=== PATIENT | male | born 1960 | race Caucasian/White ===

== ENCOUNTER 2016-05-26 09:31 | Day surgery (SDC) | payer OTHER ==
[~2016-05-26] VITALS: Ht 180.3 cm; Wt 88.5 kg
[~2016-05-26 09:31] MED LIST: CEPHALEXIN500 M1 PO; GUAIATUSSIN AC120 ML PO; NEXIUM 20MG20 MG PO; NO HOME MEDICATIONS; NORCO 325 MG-51 TAB PO; PRILOSEC 20MG20 MG PO
[2016-05-26 10:15] VITALS: BP 143/104; PULSE 92; TEMP 98
[2016-05-26 13:20] VITALS: BP 115/86; PULSE 82
[2016-05-26 13:25] VITALS: TEMP 97.4
[2016-05-26 13:35] VITALS: BP 114/88; PULSE 94
[2016-05-26] MEDS ORDERED: NORCO 325 MG-51 TAB PO (13:39)
[2016-05-26 13:50] VITALS: BP 116/83; PULSE 93
[2017-01-12] MEDS ORDERED: XARELTO20 MG PO (23:06)
== END 2016-05-26 14:48 | disposition home or self-care (01) ==
LOC: SDCO 09:31
DX: C83.31 Diffuse large B-cell lymphoma, lymph nodes of head, face, and neck (principal)
CPT/HCPCS: J0690; J1100; J1885; J2405; J2704; J3010; J7030

== ENCOUNTER → 2016-06-07 | Outpatient (CLI) | payer OTHER ==
[~2016-06-07] MED LIST changes: +FLEXERIL 1010 MG/TAB PO; +NAPROSYN500 MG PO; +XARELTO20 MG PO
== END ==
LOC: COL.VAS 09:57
DX: C85.80 Other specified types of non-Hodgkin lymphoma, unspecified site (principal)
CPT/HCPCS: Q9967

== ENCOUNTER 2016-07-29 07:39 | Day surgery (SDC) | payer OTHER ==
[~2016-07-29] VITALS: Ht 180.3 cm; Wt 91.0 kg
[~2016-07-29 07:39] MED LIST changes: -FLEXERIL 1010 MG/TAB PO; -NAPROSYN500 MG PO; -XARELTO20 MG PO
[2016-07-29] MEDS ORDERED: NEXIUM 20MG20 MG PO (08:43)
[2016-07-29 09:00] VITALS: BP 145/97; PULSE 69; TEMP 97.4
[2016-07-29 11:41] VITALS: BP 104/88; PULSE 98; TEMP 97.2
[2016-07-29 11:55] VITALS: BP 131/94; PULSE 96
[2016-07-29] MEDS ORDERED: NORCO 325 MG-51 TAB PO (12:02)
[2016-07-29 12:10] VITALS: BP 138/89
[2016-07-29 12:30] VITALS: BP 144/90
[2017-01-12] MEDS ORDERED: XARELTO20 MG PO (23:06)
== END 2016-07-29 12:40 | disposition home or self-care (01) ==
LOC: SDCO 07:39
DX: C85.81 Other specified types of non-Hodgkin lymphoma, lymph nodes of head, face, and neck (principal); K21.9 Gastro-esophageal reflux disease without esophagitis
CPT/HCPCS: C1788; J0690; J1100; J1644; J1885; J2250; J2704; J3010; J7120

== ENCOUNTER 2016-10-22 17:25 | Emergency (ER) | payer MEDICAID ==
[~2016-10-22] VITALS: Ht 180.3 cm; Wt 86.4 kg
[2016-10-22 17:33] VITALS: BP 143/91; TEMP 98
[2016-10-22] MEDS ORDERED: NEXIUM 20MG20 MG PO (17:48)
[2016-10-22] MEDS ORDERED: NAPROSYN500 MG PO (18:10)
[2016-10-22] MEDS ORDERED: FLEXERIL 1010 MG/TAB PO (18:10)
[2016-10-22 18:44] VITALS: PULSE 97
[2017-01-12] MEDS ORDERED: XARELTO20 MG PO (23:06)
== END 2016-10-22 18:45 | disposition home or self-care (01) ==
LOC: COL.ER 17:25
DX: M72.2 Plantar fascial fibromatosis (principal); M43.6 Torticollis; C85.90 Non-Hodgkin lymphoma, unspecified, unspecified site

== ENCOUNTER 2016-11-10 03:07 | Emergency (ER) | payer MEDICAID ==
[~2016-11-10] VITALS: Ht 180.3 cm; Wt 88.6 kg
[~2016-11-10 03:07] MED LIST changes: +FLEXERIL 1010 MG/TAB PO; +NAPROSYN500 MG PO
[2016-11-10 03:35] LABS: BASO % 0.6 % (0.0-2.0); EOS # 0.1 (0.0-0.7); EOS % 1.7 % (0-4.0); GRAN # 4.2 (1.4-6.5); GRAN % 60.3 % (42.2-75.2); HEMATOCRIT 43.1 % (42.0-52.0); HEMOGLOBIN 14.4 g/dl (13.5-18.0); LYMPH # 1.9 (1.2-3.4); LYMPH % 26.9 % (20.0-51.0); MEAN CELL VOLUME 80 fl (80.0-100.0); MEAN CORPUSCULAR HEMOGLOBIN 27 pg (27.0-31.0); MEAN CORPUSCULAR HGB CONC 33 g/dl (33.0-37.0); MONO # 0.7 (0.1-0.6); MONO % 10.1 % (1.7-9.3); PLATELET COUNT 181 K/mm3 (130-400); RED BLOOD COUNT 5.42 M/mm3 (4.20-5.60); REDCELL DISTRIBUTION WIDTH-CV 14.7 % (11.5-14.5)
[2016-11-10 03:53] LABS: ALBUMIN 3.7 gm/dL (3.5-5.0); BILIRUBIN,TOTAL 0.6 mg/dL (0.0-1.0); CALCIUM 8.8 mg/dL (8.4-10.2); CREATININE, serum 0.81 mg/dL (0.66-1.25); POTASSIUM 3.4 mmol/L (3.4-5.0); TOTAL PROTEIN 6.7 gm/dL (6.4-8.2)
[2016-11-10 04:45] VITALS: BP 152/78; PULSE 88
[2017-01-12] MEDS ORDERED: XARELTO20 MG PO (23:06)
== END 2016-11-10 04:45 | disposition home or self-care (01) ==
LOC: COL.ER 03:07
PROVIDERS: Emergency Medicine
DX: G44.009 Cluster headache syndrome, unspecified, not intractable (principal); K21.9 Gastro-esophageal reflux disease without esophagitis; F17.210 Nicotine dependence, cigarettes, uncomplicated; Z98.890 Other specified postprocedural states; Z85.72 Personal history of non-Hodgkin lymphomas

== ENCOUNTER 2016-11-14 16:25 | Emergency (ER) | payer MEDICAID ==
[~2016-11-14] VITALS: Ht 180.3 cm; Wt 88.6 kg
[2016-11-14 16:30] VITALS: TEMP 98
[2016-11-14] MEDS ORDERED: NORCO 325 MG-51 TAB PO (17:56)
[2016-11-14 18:02] VITALS: BP 130/82; PULSE 100
[2017-01-12] MEDS ORDERED: XARELTO20 MG PO (23:06)
== END 2016-11-14 18:04 | disposition home or self-care (01) ==
LOC: COL.ER 16:25
DX: M72.2 Plantar fascial fibromatosis (principal); R07.2 Precordial pain; R07.81 Pleurodynia; R07.89 Other chest pain; F17.210 Nicotine dependence, cigarettes, uncomplicated; Z87.19 Personal history of other diseases of the digestive system; Z85.72 Personal history of non-Hodgkin lymphomas

== ENCOUNTER 2016-12-05 15:41 | Emergency (ER) | payer MEDICAID ==
[~2016-12-05] VITALS: Ht 180.3 cm; Wt 88.6 kg
[2016-12-05 15:46] VITALS: BP 125/92; TEMP 98.5
[2016-12-05 17:14] LABS: BASO # 0.1 (0.0-0.2); BASO % 0.6 % (0.0-2.0); EOS # 0.1 (0.0-0.7); EOS % 1.4 % (0-4.0); GRAN % 57.2 % (42.2-75.2); HEMOGLOBIN 15.3 g/dl (13.5-18.0); LYMPH # 2.7 (1.2-3.4); MEAN CELL VOLUME 79 fl (80.0-100.0); MEAN CORPUSCULAR HEMOGLOBIN 27 pg (27.0-31.0); MEAN CORPUSCULAR HGB CONC 34 g/dl (33.0-37.0); MEAN PLATELET VOLUME 9.8 fl (7.4-10.4); MONO # 0.8 (0.1-0.6); MONO % 9.6 % (1.7-9.3); PLATELET COUNT 201 K/mm3 (130-400); RED BLOOD COUNT 5.71 M/mm3 (4.20-5.60); WHITE BLOOD COUNT 8.7 K/mm3 (4.8-10.8)
[2016-12-05 17:24] LABS: ADJUSTED CALCIUM 9.3 mg/dL (8.4-10.2); ALBUMIN 4.1 gm/dL (3.5-5.0); CALCIUM 9.4 mg/dL (8.4-10.2); CREATININE, serum 0.81 mg/dL (0.66-1.25); POTASSIUM 3.8 mmol/L (3.4-5.0); TOTAL PROTEIN 7.4 gm/dL (6.4-8.2)
[2016-12-05] MEDS ORDERED: XARELTO20 MG PO (19:59)
[2016-12-05 20:15] VITALS: PULSE 98
[2017-01-12] MEDS ORDERED: XARELTO20 MG PO (23:06)
== END 2016-12-05 20:16 | disposition home or self-care (01) ==
LOC: COL.ER 15:41
PROVIDERS: Emergency Medicine
DX: I26.99 Other pulmonary embolism without acute cor pulmonale (principal); C85.90 Non-Hodgkin lymphoma, unspecified, unspecified site; Z79.01 Long term (current) use of anticoagulants
CPT/HCPCS: J1644; J7030; Q9967

== ENCOUNTER 2016-12-07 10:19 | Outpatient (CLI) | payer MEDICAID ==
[~2016-12-07] VITALS: Ht 180.3 cm; Wt 91.2 kg
[~2016-12-07 10:19] MED LIST changes: +XARELTO20 MG PO
[2016-12-07] MEDS ORDERED: XARELTO20 MG PO (11:18)
[2016-12-07 11:50] VITALS: BP 105/78; PULSE 68; TEMP 98.3
[2016-12-07 15:34] VITALS: BP 120/78; PULSE 88; TEMP 97
[2017-01-12] MEDS ORDERED: XARELTO20 MG PO (23:06)
== END 2016-12-07 15:40 | disposition home or self-care (01) ==
LOC: COL.AMSURD 10:19 → ONCO 10:19 → COL.AMSURD 15:40
DX: Z51.11 Encounter for antineoplastic chemotherapy (principal); C85.90 Non-Hodgkin lymphoma, unspecified, unspecified site
CPT/HCPCS: J1100; J1644; J7050; J9000; J9070; J9370

== ENCOUNTER 2016-12-15 02:29 | Emergency (ER) | payer MEDICAID ==
[~2016-12-15] VITALS: Ht 185.4 cm; Wt 90.9 kg
[2016-12-15 02:32] VITALS: TEMP 98
[2016-12-15 03:27] LABS: HEMATOCRIT 46.6 % (42.0-52.0); HEMOGLOBIN 16.1 g/dl (13.5-18.0); MEAN CELL VOLUME 77 fl (80.0-100.0); MEAN CORPUSCULAR HEMOGLOBIN 27 pg (27.0-31.0); MEAN CORPUSCULAR HGB CONC 35 g/dl (33.0-37.0); MEAN PLATELET VOLUME 11.6 fl (7.4-10.4); PLATELET COUNT 287 K/mm3 (130-400); RED BLOOD COUNT 6.02 M/mm3 (4.20-5.60); REDCELL DISTRIBUTION WIDTH-CV 14.6 % (11.5-14.5); WHITE BLOOD COUNT 5.7 K/mm3 (4.8-10.8)
[2016-12-15 03:30] LABS: ADD PATHOLOGY DIFF REVIEW NO
[2016-12-15 03:32] LABS: PH 5 (5-8); SQUAMOUS EPITHELIAL None Seen /hpf; URINE APPEARANCE Clear; URINE BACTERIA None Seen /hpf; URINE BILIRUBIN Negative (NEGATIVE); URINE BLOOD Negative (NEGATIVE); URINE COLOR Yellow; URINE GLUCOSE Negative (NEGATIVE); URINE KETONE Negative (NEGATIVE); URINE RBC 0-2 /hpf; URINE WBC 0-2 /hpf
[2016-12-15 03:43] LABS: INR 1.2 (0.8-3.0); PROTHROMBIN TIME 12.9 SECONDS (9.7-12.8)
[2016-12-15 03:44] LABS: BAND 20 % (0-10); EOSINOPHIL 3 % (0-4); METAMYELOCYTE 1 % (0-0); NEUTROPHILS 13 % (42.0-75.2); PLATELET ESTIMATE NORMAL (NORMAL); TOTAL CELLS COUNTED 100
[2016-12-15 03:47] LABS: ADJUSTED CALCIUM 9.5 mg/dL (8.4-10.2); ALBUMIN 4.2 gm/dL (3.5-5.0); BILIRUBIN,TOTAL 0.8 mg/dL (0.0-1.0); CALCIUM 9.7 mg/dL (8.4-10.2); CREATININE, serum 0.82 mg/dL (0.66-1.25); POTASSIUM 4.2 mmol/L (3.4-5.0); TOTAL PROTEIN 7.1 gm/dL (6.4-8.2)
[2016-12-15] MEDS ORDERED: FLEXERIL 1010 MG/TAB PO (05:20)
[2016-12-15] MEDS ORDERED: NORCO 325 MG-51 TAB PO (05:20)
[2016-12-15 05:40] VITALS: BP 123/84; PULSE 98
[2017-01-12] MEDS ORDERED: XARELTO20 MG PO (23:06)
== END 2016-12-15 05:43 | disposition home or self-care (01) ==
LOC: COL.ER 02:29
PROVIDERS: Emergency Medicine
DX: M54.5 Low back pain (principal); C85.90 Non-Hodgkin lymphoma, unspecified, unspecified site; F17.210 Nicotine dependence, cigarettes, uncomplicated; Z79.01 Long term (current) use of anticoagulants
CPT/HCPCS: J1170; J7030; Q9967

== ENCOUNTER 2017-02-05 20:35 | Emergency (ER) | payer MEDICAID ==
[~2017-02-05] VITALS: Ht 180.3 cm; Wt 94.1 kg
[2017-02-05 20:36] VITALS: TEMP 98.5
[2017-02-05] MEDS ORDERED: COMPAZINE 110 MG/TAB PO (20:41)
[2017-02-05 21:09] LABS: HEMATOCRIT 44.5 % (42.0-52.0); HEMOGLOBIN 14.9 g/dl (13.5-18.0); MEAN CELL VOLUME 79 fl (80.0-100.0); MEAN CORPUSCULAR HEMOGLOBIN 27 pg (27.0-31.0); MEAN CORPUSCULAR HGB CONC 34 g/dl (33.0-37.0); MEAN PLATELET VOLUME 9.6 fl (7.4-10.4); PLATELET COUNT 298 K/mm3 (130-400); RED BLOOD COUNT 5.62 M/mm3 (4.20-5.60); REDCELL DISTRIBUTION WIDTH-CV 16.7 % (11.5-14.5); WHITE BLOOD COUNT 18.1 K/mm3 (4.8-10.8)
[2017-02-05 21:13] LABS: ADD PATHOLOGY DIFF REVIEW NO
[2017-02-05 21:15] LABS: ALBUMIN 4.4 gm/dL (3.5-5.0); BILIRUBIN,TOTAL 0.8 mg/dL (0.0-1.0); CALCIUM 10.3 mg/dL (8.4-10.2); CREATININE, serum 0.81 mg/dL (0.66-1.25); INR 1.5 (0.8-3.0); POTASSIUM 4.4 mmol/L (3.4-5.0); PROTHROMBIN TIME 17.4 SECONDS (9.7-12.8); TOTAL PROTEIN 7.8 gm/dL (6.4-8.2)
[2017-02-05 21:18] LABS: PARTIAL THROMBOPLASTIN TIME 45.1 SECONDS (26.0-37.0)
[2017-02-05 21:27] LABS: TROPONIN-I 0.023 ng/mL (0.000-0.034)
[2017-02-05 22:18] LABS: BAND 10 % (0-10); NEUTROPHILS 75 % (42.0-75.2); PLATELET ESTIMATE NORMAL (NORMAL); TOTAL CELLS COUNTED 100
[2017-02-06 00:57] VITALS: BP 127/76; PULSE 110
[2017-02-06] MEDS ORDERED: LEVAQUIN 5500 MG/TA1 PO (13:45)
[2017-02-06] MEDS ORDERED: ZOFRAN 4MG T4 MG/TAB PO (13:45)
== END 2017-02-06 00:57 | disposition home or self-care (01) ==
LOC: COL.ER 20:35
PROVIDERS: Emergency Medicine
DX: R07.89 Other chest pain (principal); C85.90 Non-Hodgkin lymphoma, unspecified, unspecified site; Z86.711 Personal history of pulmonary embolism
CPT/HCPCS: J1170; J7030

== ENCOUNTER 2017-02-06 09:06 | Emergency (ER) | payer MEDICAID ==
[~2017-02-06] VITALS: Ht 180.3 cm; Wt 94.1 kg
[~2017-02-06 09:06] MED LIST changes: +COMPAZINE 110 MG/TAB PO
[2017-02-06 09:54] LABS: BASO % 0.4 % (0.0-2.0); EOS % 0.1 % (0-4.0); GRAN # 8.7 (1.4-6.5); GRAN % 86.3 % (42.2-75.2); HEMATOCRIT 41.4 % (42.0-52.0); HEMOGLOBIN 13.9 g/dl (13.5-18.0); LYMPH # 0.6 (1.2-3.4); LYMPH % 5.5 % (20.0-51.0); MEAN CELL VOLUME 80 fl (80.0-100.0); MEAN CORPUSCULAR HEMOGLOBIN 27 pg (27.0-31.0); MEAN CORPUSCULAR HGB CONC 34 g/dl (33.0-37.0); MEAN PLATELET VOLUME 9.9 fl (7.4-10.4); MONO # 0.7 (0.1-0.6); MONO % 6.9 % (1.7-9.3); PLATELET COUNT 300 K/mm3 (130-400); REDCELL DISTRIBUTION WIDTH-CV 16.4 % (11.5-14.5)
[2017-02-06 10:09] LABS: ADJUSTED CALCIUM 9.6 mg/dL (8.4-10.2); BILIRUBIN,TOTAL 1.1 mg/dL (0.0-1.0); C-REACTIVE PROTEIN 3.8 mg/dL (0.0-0.9); CALCIUM 9.6 mg/dL (8.4-10.2); CREATININE, serum 0.82 mg/dL (0.66-1.25); POTASSIUM 3.8 mmol/L (3.4-5.0); TOTAL PROTEIN 7.3 gm/dL (6.4-8.2)
[2017-02-06 10:17] LABS: TROPONIN-I 0.022 ng/mL (0.000-0.034)
[2017-02-06] MEDS ORDERED: LEVAQUIN 5500 MG/TA1 PO (13:45)
[2017-02-06] MEDS ORDERED: ZOFRAN 4MG T4 MG/TAB PO (13:45)
[2017-02-06 14:08] VITALS: BP 122/71; PULSE 101; TEMP 98.2
== END 2017-02-06 14:20 | disposition home or self-care (01) ==
LOC: COL.ER 09:06
PROVIDERS: Emergency Medicine
DX: J20.9 Acute bronchitis, unspecified (principal); R11.10 Vomiting, unspecified; R19.7 Diarrhea, unspecified; C85.90 Non-Hodgkin lymphoma, unspecified, unspecified site; F17.210 Nicotine dependence, cigarettes, uncomplicated; I26.99 Other pulmonary embolism without acute cor pulmonale; Z79.01 Long term (current) use of anticoagulants
CPT/HCPCS: J1170; J2405; J7030; J7512

== ENCOUNTER → 2017-02-22 | Outpatient (CLI) | payer MEDICAID ==
[~2017-02-22] MED LIST changes: +LEVAQUIN 5500 MG/TA1 PO; +ZOFRAN 4MG T4 MG/TAB PO
== END ==
LOC: COL.RAD 08:13
DX: J43.9 Emphysema, unspecified (principal); M50.30 Other cervical disc degeneration, unspecified cervical region
CPT/HCPCS: Q9967

== ENCOUNTER 2017-03-08 04:19 | Emergency (ER) | payer MEDICAID ==
[~2017-03-08] VITALS: Ht 180.3 cm; Wt 88.6 kg
[2017-03-08 04:21] VITALS: TEMP 97.5
[2017-03-08] MEDS ORDERED: LOMOTIL 0.025 M1 TAB PO (04:27)
[2017-03-08] MEDS ORDERED: NORCO 325 MG-101 TAB PO (04:28)
[2017-03-08 04:59] LABS: HEMOGLOBIN 12.2 g/dl (13.5-18.0); MEAN CELL VOLUME 79 fl (80.0-100.0); MEAN CORPUSCULAR HEMOGLOBIN 27 pg (27.0-31.0); MEAN CORPUSCULAR HGB CONC 34 g/dl (33.0-37.0); MEAN PLATELET VOLUME 10.4 fl (7.4-10.4); PLATELET COUNT 169 K/mm3 (130-400)
[2017-03-08 05:03] LABS: ADD PATHOLOGY DIFF REVIEW NO; HEMATOCRIT 36.3 % (42.0-52.0); WHITE BLOOD COUNT 0.7 K/mm3 (4.8-10.8)
[2017-03-08 05:07] LABS: ADJUSTED CALCIUM 9.5 mg/dL (8.4-10.2); ALBUMIN 3.9 gm/dL (3.5-5.0); BILIRUBIN,TOTAL 1.6 mg/dL (0.0-1.0); C-REACTIVE PROTEIN 3.1 mg/dL (0.0-0.9); CALCIUM 9.4 mg/dL (8.4-10.2); CREATININE, serum 0.67 mg/dL (0.66-1.25); TOTAL PROTEIN 6.9 gm/dL (6.4-8.2)
[2017-03-08 05:20] LABS: POTASSIUM 2.9 mmol/L (3.4-5.0)
[2017-03-08 05:30] LABS: BAND 4 % (0-10); LYMPHOCYTE 56 % (20.0-51.0); METAMYELOCYTE 4 % (0-0); NEUTROPHILS 12 % (42.0-75.2); TOTAL CELLS COUNTED 100
[2017-03-08 06:17] LABS: MAGNESIUM 1.8 mg/dL (1.6-2.3)
[2017-03-08] MEDS ORDERED: CIPRO 500MG TA500 MG PO (08:26)
[2017-03-08] MEDS ORDERED: FLAGYL500 MG PO (08:26)
[2017-03-08 09:18] VITALS: BP 121/85; PULSE 95
== END 2017-03-08 10:33 | disposition home or self-care (01) ==
LOC: COL.ER 04:19
PROVIDERS: Emergency Medicine
DX: C85.90 Non-Hodgkin lymphoma, unspecified, unspecified site (principal); E87.6 Hypokalemia; D70.9 Neutropenia, unspecified; F17.210 Nicotine dependence, cigarettes, uncomplicated; Z86.711 Personal history of pulmonary embolism
CPT/HCPCS: J1447; J2405; J2550; J3480; J7030; Q9967

== ENCOUNTER 2017-03-11 10:33 | Emergency (ER) | payer MEDICAID ==
[~2017-03-11] VITALS: Ht 180.3 cm; Wt 88.6 kg
[~2017-03-11 10:33] MED LIST changes: +CIPRO 500MG TA500 MG PO; +FLAGYL500 MG PO; +LOMOTIL 0.025 M1 TAB PO; +NORCO 325 MG-101 TAB PO
[2017-03-11 10:36] VITALS: TEMP 97.7
[2017-03-11 12:45] LABS: MEAN CELL VOLUME 80 fl (80.0-100.0); MEAN CORPUSCULAR HGB CONC 33 g/dl (33.0-37.0); MEAN PLATELET VOLUME 11.4 fl (7.4-10.4); PLATELET COUNT 159 K/mm3 (130-400); RED BLOOD COUNT 4.09 M/mm3 (4.20-5.60); WHITE BLOOD COUNT 4.7 K/mm3 (4.8-10.8)
[2017-03-11 12:56] LABS: COLLECTION METHOD CLEAN CATCH
[2017-03-11 12:58] LABS: ADD PATHOLOGY DIFF REVIEW NO; HEMATOCRIT 32.9 % (42.0-52.0); HEMOGLOBIN 10.9 g/dl (13.5-18.0); MEAN CORPUSCULAR HEMOGLOBIN 27 pg (27.0-31.0)
[2017-03-11 12:59] LABS: ADJUSTED CALCIUM 9.6 mg/dL (8.4-10.2); ALBUMIN 3.7 gm/dL (3.5-5.0); BILIRUBIN,TOTAL 0.5 mg/dL (0.0-1.0); CALCIUM 9.4 mg/dL (8.4-10.2); CREATININE, serum 0.8 mg/dL (0.66-1.25); POTASSIUM 3.1 mmol/L (3.4-5.0); TOTAL PROTEIN 6.1 gm/dL (6.4-8.2)
[2017-03-11 13:03] LABS: MUCOUS Present /lpf; PH 5 (5-8); SQUAMOUS EPITHELIAL 0-2 /hpf; URINE APPEARANCE Clear; URINE BACTERIA None Seen /hpf; URINE BILIRUBIN Negative (NEGATIVE); URINE BLOOD 1+ (NEGATIVE); URINE COLOR Amber; URINE GLUCOSE Negative (NEGATIVE); URINE KETONE Negative (NEGATIVE); URINE LEUKOCYTE ESTERASE 1+ (NEGATIVE); URINE PROTEIN(semi-quant) 1+ (NEGATIVE); URINE WBC 0-2 /hpf
[2017-03-11 13:36] LABS: BAND 11 % (0-10); BASOPHIL 1 % (0-2); EOSINOPHIL 1 % (0-4); LYMPHOCYTE 37 % (20.0-51.0); NEUTROPHILS 31 % (42.0-75.2); NUCLEATED RED BLOOD CELL 2 (0-6); TOTAL CELLS COUNTED 100
[2017-03-11 13:37] LABS: PLATELET ESTIMATE NORMAL (NORMAL)
[2017-03-11 13:56] VITALS: BP 116/90; PULSE 107
== END 2017-03-11 13:56 | disposition home or self-care (01) ==
LOC: COL.ER 10:33
PROVIDERS: Emergency Medicine
DX: M54.5 Low back pain (principal); E87.6 Hypokalemia; R31.29 Other microscopic hematuria; C81.90 Hodgkin lymphoma, unspecified, unspecified site; F17.210 Nicotine dependence, cigarettes, uncomplicated; Z98.890 Other specified postprocedural states
CPT/HCPCS: J1170; J1885; J2765; J2930; J3010; J7030

== ENCOUNTER 2017-04-08 08:20 | Emergency (ER) | payer MEDICAID ==
[~2017-04-08] VITALS: Ht 180.3 cm; Wt 90.9 kg
[2017-04-08] MEDS ORDERED: NORCO 325 MG-101 TAB PO (08:56)
[2017-04-08 08:58] VITALS: BP 122/91; PULSE 112; TEMP 96.7
== END 2017-04-08 08:58 | disposition home or self-care (01) ==
LOC: COL.ER 08:20
DX: G89.29 Other chronic pain (principal); M54.5 Low back pain; I26.99 Other pulmonary embolism without acute cor pulmonale; I10 Essential (primary) hypertension; F17.210 Nicotine dependence, cigarettes, uncomplicated; Z85.72 Personal history of non-Hodgkin lymphomas; Z92.21 Personal history of antineoplastic chemotherapy; Z79.01 Long term (current) use of anticoagulants; Z98.890 Other specified postprocedural states; X50.9XXA Other and unspecified overexertion or strenuous movements or postures, initial encounter

== ENCOUNTER 2017-12-03 18:08 | Emergency (ER) | payer MEDICAID ==
[~2017-12-03] VITALS: Ht 180.3 cm; Wt 81.8 kg
[2017-12-03 18:12] VITALS: BP 137/94; TEMP 97.9
[2017-12-03] MEDS ORDERED: AMOXICILLIN 8751 TAB PO (18:26)
[2017-12-03] MEDS ORDERED: NORCO 325 MG-51 TAB PO (18:26)
[2017-12-03 18:50] VITALS: PULSE 87
== END 2017-12-03 18:56 | disposition home or self-care (01) ==
LOC: COL.ER 18:08
DX: K08.89 Other specified disorders of teeth and supporting structures (principal); F17.210 Nicotine dependence, cigarettes, uncomplicated

== ENCOUNTER 2018-05-27 12:39 | Emergency (ER) | payer MEDICAID ==
[~2018-05-27] VITALS: Ht 180.3 cm; Wt 77.3 kg
[~2018-05-27 12:39] MED LIST changes: +AMOXICILLIN 8751 TAB PO
[2018-05-27 12:46] VITALS: BP 145/92; TEMP 97.8
[2018-05-27] MEDS ORDERED: RESTORIL 77.5 MG/CAP PEG (14:07)
[2018-05-27] MEDS ORDERED: KLONOPIN 0.5MG0.5 MG PO (14:07)
[2018-05-27] MEDS ORDERED: MOBIC 7.5MG7.5 MG PO (14:17)
[2018-05-27 14:28] VITALS: PULSE 91
== END 2018-05-27 14:28 | disposition home or self-care (01) ==
LOC: COL.ER 12:39
DX: M19.012 Primary osteoarthritis, left shoulder (principal); I10 Essential (primary) hypertension; F41.9 Anxiety disorder, unspecified; G47.00 Insomnia, unspecified; F17.210 Nicotine dependence, cigarettes, uncomplicated; Z98.890 Other specified postprocedural states
CPT/HCPCS: J1885

== ENCOUNTER 2018-08-23 18:58 | Emergency (ER) | payer MEDICARE ==
[~2018-08-23] VITALS: Ht 180.3 cm; Wt 79.5 kg
[~2018-08-23 18:58] MED LIST changes: +KLONOPIN 0.5MG0.5 MG PO; +MOBIC 7.5MG7.5 MG PO; +RESTORIL 77.5 MG/CAP PEG
[2018-08-23 19:06] VITALS: TEMP 97.9
[2018-08-23] MEDS ORDERED: DOXYCYCLINE 10100 MG PO (20:07)
[2018-08-23] MEDS ORDERED: XARELTO2.5 MG PO (20:29)
[2018-08-23 20:30] VITALS: BP 100/75; PULSE 81
== END 2018-08-23 20:31 | disposition home or self-care (01) ==
LOC: COL.ER 18:58
DX: L02.31 Cutaneous abscess of buttock (principal); F41.9 Anxiety disorder, unspecified

== ENCOUNTER 2018-09-06 08:36 | Emergency (ER) | payer MEDICARE ==
[~2018-09-06] VITALS: Ht 180.3 cm; Wt 77.3 kg
[~2018-09-06 08:36] MED LIST changes: +DOXYCYCLINE 10100 MG PO; +XARELTO2.5 MG PO
[2018-09-06 08:39] VITALS: TEMP 97.4
[2018-09-06 09:23] LABS: BASO % 0.3 % (0.0-2.0); EOS # 0.2 (0.0-0.7); EOS % 3.3 % (0-4.0); GRAN # 4.1 (1.4-6.5); GRAN % 62.5 % (42.2-75.2); HEMATOCRIT 42.5 % (42.0-52.0); LYMPH # 1.2 (1.2-3.4); LYMPH % 18.1 % (20.0-51.0); MEAN CELL VOLUME 81 fl (80.0-100.0); MEAN CORPUSCULAR HEMOGLOBIN 27 pg (27.0-31.0); MEAN CORPUSCULAR HGB CONC 33 g/dl (33.0-37.0); MEAN PLATELET VOLUME 9.7 fl (7.4-10.4); MONO % 15.6 % (1.7-9.3); PLATELET COUNT 194 K/mm3 (130-400); RED BLOOD COUNT 5.25 M/mm3 (4.20-5.60); REDCELL DISTRIBUTION WIDTH-CV 14.9 % (11.5-14.5)
[2018-09-06 09:29] LABS: CALCIUM 9.6 mg/dL (8.4-10.2); CREATININE, serum 0.73 (0.66-1.25); POTASSIUM 4.1 mmol/L (3.4-5.0)
[2018-09-06 10:52] VITALS: BP 130/87; PULSE 67
== END 2018-09-06 10:57 | disposition home or self-care (01) ==
LOC: COL.ER 08:36
PROVIDERS: Physician Assistant
DX: S10.93XA Contusion of unspecified part of neck, initial encounter (principal); T71.9XXA Asphyxiation due to unspecified cause, initial encounter; F17.210 Nicotine dependence, cigarettes, uncomplicated; Y92.009 Unspecified place in unspecified non-institutional (private) residence as the place of occurrence of the external cause
CPT/HCPCS: J7030; Q9967

== ENCOUNTER 2019-06-17 11:20 | Emergency (ER) | payer MEDICARE ==
[~2019-06-17] VITALS: Ht 180.3 cm; Wt 79.5 kg
[2019-06-17 11:49] VITALS: BP 124/81; TEMP 98.3
[2019-06-17] MEDS ORDERED: NORCO 325 MG-51 TAB PO (13:01)
[2019-06-17] MEDS ORDERED: FLEXERIL 1010 MG/TAB PO (13:01)
[2019-06-17 13:12] VITALS: PULSE 88
== END 2019-06-17 13:15 | disposition home or self-care (01) ==
LOC: COL.ER 11:20
DX: S29.011A Strain of muscle and tendon of front wall of thorax, initial encounter (principal); F41.9 Anxiety disorder, unspecified; F17.210 Nicotine dependence, cigarettes, uncomplicated; X50.0XXA Overexertion from strenuous movement or load, initial encounter
CPT/HCPCS: J1885

== ENCOUNTER → 2020-07-07 | Outpatient (CLI) | payer OTHER | LOC: COL.RAD 11:18 | DX: M54.5 Low back pain (principal) ==

== ENCOUNTER → 2021-06-02 | Outpatient (CLI) | payer MEDICARE | LOC: COL.RAD 09:45 | DX: R94.5 Abnormal results of liver function studies (principal); Z86.19 Personal history of other infectious and parasitic diseases ==

== ENCOUNTER → 2021-06-10 | Outpatient (CLI) | payer MEDICARE ==
[2021-06-10 11:37] LABS: BASO % 0.5 % (0.0-2.0); EOS # 0.1 K/mm3 (0.0-0.7); EOS % 1.8 % (0.0-4.0); GRAN # 3.7 K/mm3 (1.4-6.5); GRAN % 56.3 % (42.2-75.2); HEMATOCRIT 44.6 % (42.0-52.0); HEMOGLOBIN 14.8 g/dl (13.5-18.0); LYMPH % 30.8 % (20.0-51.0); MEAN CELL VOLUME 78 fl (80.0-100.0); MEAN CORPUSCULAR HEMOGLOBIN 26 pg (27-31); MEAN CORPUSCULAR HGB CONC 33 g/dl (33.0-37.0); MEAN PLATELET VOLUME 9.6 fl (7.4-10.4); MONO # 0.7 K/mm3 (0.1-0.6); MONO % 10.3 % (1.7-9.3); PLATELET COUNT 214 K/mm3 (130-400); RED BLOOD COUNT 5.71 M/mm3 (4.20-5.60); REDCELL DISTRIBUTION WIDTH-CV 15.3 % (11.5-14.5)
== END ==
LOC: COL.LAB 10:54
DX: R06.00 Dyspnea, unspecified (principal)

== ENCOUNTER 2021-06-21 01:38 | Emergency (ER) | payer MEDICAID ==
[~2021-06-21] VITALS: Ht 180.3 cm; Wt 90.9 kg
[2021-06-21 02:12] VITALS: BP 142/97; PULSE 91; TEMP 98.1
[2021-06-21] MEDS ORDERED: VALIUM 10MG10 MG/TAB PO (02:17)
== END 2021-06-21 02:27 | disposition home or self-care (01) ==
LOC: COL.ER 01:38
DX: M43.6 Torticollis (principal); Z86.711 Personal history of pulmonary embolism; Z85.72 Personal history of non-Hodgkin lymphomas

== ENCOUNTER 2021-12-02 15:03 | Outpatient (RCR) | payer MEDICAID ==
[~2021-12-02 15:03] MED LIST changes: +ASPIRIN 81M81 MG/TA2 PO; +LIPITOR 80MG80 MG PO; +PLAVIX 75MG TAB75 MG PO; +REVATIO20 MG PO; +VALIUM 10MG10 MG/TAB PO
== END 2021-12-12 ==
LOC: COL.CR
DX: Z29.8 Encounter for other specified prophylactic measures (principal); I25.10 Atherosclerotic heart disease of native coronary artery without angina pectoris; Z95.5 Presence of coronary angioplasty implant and graft

== ENCOUNTER 2021-12-13 04:10 | Outpatient (RCR) | payer MEDICAID ==
[2021-12-24] MEDS ORDERED: NORCO 325 MG-51 TAB PO (13:14)
== END 2022-01-12 ==
LOC: COL.CR
DX: Z29.8 Encounter for other specified prophylactic measures (principal); I25.10 Atherosclerotic heart disease of native coronary artery without angina pectoris; Z95.5 Presence of coronary angioplasty implant and graft

== ENCOUNTER 2021-12-24 12:15 | Emergency (ER) | payer MEDICAID ==
[~2021-12-24] VITALS: Ht 180.3 cm; Wt 90.9 kg
[2021-12-24 12:21] VITALS: BP 139/105; TEMP 98.1
[2021-12-24] MEDS ORDERED: NORCO 325 MG-51 TAB PO (13:14)
[2021-12-24 13:29] VITALS: PULSE 89
== END 2021-12-24 13:30 | disposition home or self-care (01) ==
LOC: COL.ER 12:15
DX: M54.50 Low back pain, unspecified (principal); Z87.39 Personal history of other diseases of the musculoskeletal system and connective tissue; X50.0XXA Overexertion from strenuous movement or load, initial encounter

== ENCOUNTER → 2023-07-07 | Outpatient (CLI) | payer MEDICARE, MEDICAID | LOC: COL.RAD 11:02 | DX: M47.26 Other spondylosis with radiculopathy, lumbar region (principal); M48.061 Spinal stenosis, lumbar region without neurogenic claudication ==